=== PATIENT | male | born 1965 | race Caucasian/White ===

== ENCOUNTER 2018-11-14 15:02 | Emergency (ER) | payer SELFPAY ==
--- NOTE | 2018-11-14 15:45 | EKG ---
Test Date: 2018-11-14 Test Time: 15:08:49 Cable Repairer: VAIBHAV MEASUREMENT RESULTS: Intervals: Rate: 78 OK: 122 QRSD: 88 QT: 374 QTc: 426 Sentinel: P: 80 OK: 122 QRS: 75 T: 73 INTERPRETIVE STATEMENTS: Normal sinus rhythm Right atrial enlargement Borderline ECG No previous ECG available for comparison Electronically Signed On 11-14-18 15:44:26 MEATCUTTER by Jordan Koo
[2018-11-14 16:10] LABS: Absolute Lymphocytes (CBC) 1.7 K/uL (0.7-4.9); Absolute Monocytes 0.9 K/uL (0.1-1.3); Absolute Neutrophil 6.4 K/uL (1.8-8.0); Basophils % 1.3 % (0-1.3); Eosinophils % 4.2 % (0-4.4); Hematocrit 37.7 % (39.6-49.0); Lymphocytes % 18.4 % (15.3-44.8); RBC Red Blood Cell Count 4.76 M/uL (4.33-5.43)
[2018-11-14 16:14] LABS: Protime INR 1.09
--- NOTE | 2018-11-14 16:23 | RAD REPORT ---
EXAM DESCRIPTION: [place] Single View11/14/2018 4:16 pm CLINICAL HISTORY: Chest pain COMPARISON: none FINDINGS: Small nodular opacity overlies the left base. Right lung appears clear The heart is normal size IMPRESSION: Small nodular opacity overlying the left base probably represents a nipple shadow. As a pulmonary nodule has a similar appearance it is recommended that the patient have frontal and oblique views of the chest with a left nipple marker for further evaluation
[2018-11-14 16:28] LABS: ALT/SGPT 25 U/L (12-78); AST/SGOT 27 U/L (15-37); Albumin 3.2 g/dL (3.4-5.0); Alkaline Phosphatase 143 U/L (45-117); BUN Blood Urea Nitrogen 9 mg/dL (7-18); Bicarbonate 28 mmol/L (21-32); Bilirubin Direct 0.1 mg/dL (0-0.2); Bilirubin Total 0.3 mg/dL (0.2-1.0); Glucose Level 84 mg/dL (74-106); Magnesium 2.2 mg/dL (1.8-2.4); NT PRO-BNP 223 pg/mL (<125); Potassium 3.9 mmol/L (3.5-5.1); Protein, Total 8.3 g/dL (6.4-8.2); Sodium Level 138 mmol/L (136-145); Troponin (Emerg Dept Use Only) < 0.02 ng/mL (0.0-0.045)
[2018-11-14 16:57] LABS: Urine Blood NEGATIVE (NEG); Urine Glucose NEGATIVE (NEG); Urine Protein NEGATIVE (NEG); Urine Specific Gravity 1.015 (1.005-1.030)
--- NOTE | 2018-11-14 18:41 | RAD REPORT ---
EXAM DESCRIPTION: [place] Pa And Lat (2 Views)11/14/2018 6:33 pm CLINICAL HISTORY: Pulmonary nodule COMPARISON: November 14 FINDINGS: A left nipple marker has been placed. The marker overlies a nodular opacity within left base confirming that this represents a nipple shado w. The lungs appear clear of acute infiltrate. The heart is normal size
--- NOTE | 2018-11-14 18:47 | ER ---
Nurse's Notes [facility] Name: Fabricio Tesfaye Age: 53 yrs Sex: Male : 1965 Arrival Date: 11/14/2018 Time: 15:05 Bed 15 Private MD: Diagnosis: Near Syncope;Palpitations Presentation: 11/14 15:08 Presenting complaint: Nausea x and nonproductive cough x 4 days, dizziness since this hb morning. Transition of care: patient was not received from another setting of care. Onset of symptoms was November 10, 2018. Risk Assessment: Do you want to hurt yourself or someone else? Patient reports no desire to harm self or others. Care prior to arrival: None. 15:08 Method Of Arrival: Ambulatory hb 15:08 Acuity: ANIA 3 hb 19:10 Initial Sepsis Screen: Does the patient meet any 2 criteria? No. Patient's initial ss sepsis screen is negative. Does the patient have a suspected source of infection? No. Patient's initial sepsis screen is negative. Historical: - Allergies: 15:10 No Known Allergies; hb - Home Meds: 15:10 None [Active]; hb - PMHx: 15:10 Psoriasis; hb - PSHx: 15:10 None; hb - Immunization history:: Adult Immunizations up to date. - Social history:: Smoking status: Patient uses tobacco products, smokes one pack cigarettes per day. - Ebola Screening: : No symptoms or risks identified at this time. Screenin:25 Abuse screen: Denies threats or abuse. Denies injuries from another. Nutritional sg screening: No deficits noted. Tuberculosis screening: No symptoms or risk factors identified. Never had TB. Fall Risk None identified. Assessment: 15:22 General: Appears in no apparent distress. comfortable, well groomed, well developed, sg well nourished, Behavior is calm, cooperative, appropriate for age. Pain: Denies pain. Neuro: Level of Consciousness is awake, alert, obeys commands, Oriented to person, place, time, Diet Counselor are equal bilaterally Moves all extremities. Full function Gait is steady, Speech is normal, Reports dizziness. Cardiovascular: Capillary refill is brisk in bilateral fingers Patient's skin is warm and dry. Respiratory: Airway is patent Respiratory effort is even, unlabored, Respiratory pattern is regular, symmetrical. GI: Abdomen is round non-distended, Reports normal bowel habits, tolerance of fluids, tolerance of food. : No signs and/or symptoms were reported regarding the genitourinary system. EENT: No signs and/or symptoms were reported regarding the EENT system. Derm: Skin is pink, warm \T\ dry. Musculoskeletal: No signs and/or symptoms reported regarding the musculoskeletal system. Vital Signs: 15:09 BP 124 / 69; Pulse 69; Resp 18; Temp 97.8; Pulse Ox 100% on R/A; Pain 8/10; hb 15:40 BP 122 / 70 Supine; Pulse 70; Resp 17; sg 15:42 BP 124 / 67 Sitting; Pulse 72; Resp 17 S; sg 15:45 BP 130 / 74 Standing; Pulse 82; Resp 16; sg 16:27 BP 126 / 71; Pulse 76; Resp 18; Pulse Ox 95% on R/A; sg 17:33 BP 126 / 83; Pulse 70; Resp 16; Temp 97.8(O); Pulse Ox 99% on R/A; mh5 ED Course: 15:05 Patient arrived in ED. mr 15:09 Triage completed. hb 15:09 Arm band placed on. hb 15:12 EKG done, by semiconductor development technician. reviewed by Misael Serrano MD. at1 15:14 Arun Alba, CONNOR is Primary Nurse. sg 15:17 Waylon Ricketts PA is PHCP. jr8 15:17 Misael Serrano MD is Attending Physician. jr8 15:54 Initial lab(s) drawn, by ut, sent to lab. Inserted saline lock: 20 gauge in right mh5 forearm, using aseptic technique. Blood collected. 15:55 Patient has correct armband on for positive identification. Placed in gown. Bed in low mh5 position. Call light in reach. Side rails up X 1. Warm blanket given. quality assurance monitor chassis on. Pulse ox on. NIBP on. 16:16 XRAY Chest (1 view) In Process Unspecified. EDMS 18:34 XRAY Chest Pa And Lat (2 Views) In Process Unspecified. EDMS 18:46 Jordan Koo MD is Referral Physician. jr8 19:09 No provider procedures requiring assistance completed. IV discontinued, intact, ss bleeding controlled, No redness/swelling at site. Pressure dressing applied. Administered Medications: No medications were administered Outcome: 18:47 Discharge ordered by MD. abreu 19:09 Discharged to home ambulatory. 19:09 Condition: stable 19:09 Discharge instructions given to patient, family, Instructed on discharge instructions, follow up and referral plans. medication usage, Demonstrated understanding of instructions, follow-up care, medications. 19:10 Patient left the ED. Signatures: Dispatcher [employer] EDMS Arun Alba RN RN MaxxElena mr Ana Caballero RN RN Waylon Ricketts PA PA jrNevaeh Nino, senior sustainability advisor EKG Tat1 Isa Murillo RN RN hb Martinez, [facility]
--- NOTE | 2018-11-14 18:47 | EDPHYS ---
Physician Documentation [facility] Name: Fabricio Tesfaye Age: 53 yrs Sex: Male : 1965 Arrival Date: 11/14/2018 Time: 15:05 Bed 15 Private MD: ED Physician Misael Serrano HPI: 11/14 16:44 This 53 yrs old Male presents to ER via Ambulatory with complaints of jr8 Dizziness, Vomiting. 16:44 The patient presents with dizziness, feeling faint. Onset: The symptoms/episode jr8 began/occurred acutely, today. Context: occurred at home, occurred while the patient was standing. Modifying factors: The symptoms are alleviated by lying down, the symptoms are aggravated by standing up. Associated signs and symptoms: Pertinent positives: palpitations, nausea . Severity of symptoms: At their worst the symptoms were moderate in the emergency department the symptoms have improved. Patient's baseline: Neuro: alert and fully oriented, Motor: no deficits, Ambulation: walks without assistance, Speech: normal. The patient has not experienced similar symptoms in the past. The patient has not recently seen a physician. Historical: - Allergies: 15:10 No Known Allergies; hb - Home Meds: 15:10 None [Active]; hb - PMHx: 15:10 Psoriasis; hb - PSHx: 15:10 None; hb - Immunization history:: Adult Immunizations up to date. - Social history:: Smoking status: Patient uses tobacco products, smokes one pack cigarettes per day. - Ebola Screening: : No symptoms or risks identified at this time. ROS: 16:44 Eyes: Negative for injury, pain, redness, and discharge, ENT: Negative for injury, jr8 pain, and discharge, Neck: Negative for injury, pain, and swelling, Respiratory: Negative for shortness of breath, cough, wheezing, and pleuritic chest pain, Abdomen/GI: Negative for abdominal pain, nausea, vomiting, diarrhea, and constipation, Back: Negative for injury and pain, MS/Extremity: Negative for injury and deformity, Skin: Negative for injury, rash, and discoloration. 16:44 Cardiovascular: Positive for palpitations, Negative for chest pain, edema, orthopnea, paroxysmal nocturnal dyspnea. 16:44 Neuro: Positive for dizziness, near syncope, Negative for altered mental status, gait disturbance, headache, hearing loss, loss of consciousness, numbness, seizure activity, speech changes, syncope, tingling, tinnitus, tremor, visual changes, weakness. Exam: 16:44 Eyes: Pupils equal round and reactive to light, extra-ocular motions intact. Lids and jr8 lashes normal. Conjunctiva and sclera are non-icteric and not injected. Cornea within normal limits. Periorbital areas with no swelling, redness, or edema. ENT: Nares patent. No nasal discharge, no septal abnormalities noted. Tympanic membranes are normal and external auditory canals are clear. Oropharynx with no redness, swelling, or masses, exudates, or evidence of obstruction, uvula midline. Mucous membranes moist. Neck: Trachea midline, no thyromegaly or masses palpated, and no cervical lymphadenopathy. Supple, full range of motion without nuchal rigidity, or vertebral point tenderness. No Meningismus. Cardiovascular: Regular rate and rhythm with a normal S1 and S2. No gallops, murmurs, or rubs. Normal PMI, no JVD. No pulse deficits. Respiratory: Lungs have equal breath sounds bilaterally, clear to auscultation and percussion. No rales, rhonchi or wheezes noted. No increased work of breathing, no retractions or nasal flaring. Abdomen/GI: Soft, non-tender, with normal bowel sounds. No distension or tympany. No guarding or rebound. No evidence of tenderness throughout. Back: No spinal tenderness. No costovertebral tenderness. Full range of motion. Skin: Warm, dry with normal turgor. Normal color with no rashes, no lesions, and no evidence of cellulitis. MS/ Extremity: Pulses equal, no cyanosis. Neurovascular intact. Full, normal range of motion. 16:44 Neuro: Orientation: to person, place, time \T\ situation. Mentation: is normal, Memory: is normal, immediate memory is intact, recent memory is intact, remote memory is intact, Cranial nerves: CN I not tested, CN II- XII are normal as tested, extraocular movements are intact, Facial palsy and sensory deficits are absent. Nystagmus is absent. Speech is clear and appropriate. Tongue strength is normal, Cerebellar function: normal finger to nose testing, heel to galdamez testing is normal, Motor: moves all fours, strength is 5/5 in all extremities, Sensation: no obvious gross deficits, Gait: not tested. seizure activity, is not displayed by the patient, Abnormal movements: there are no abnormal movements. 16:49 ECG was reviewed by the Attending Physician. jr8 Vital Signs: 15:09 BP 124 / 69; Pulse 69; Resp 18; Temp 97.8; Pulse Ox 100% on R/A; Pain 8/10; hb 15:40 BP 122 / 70 Supine; Pulse 70; Resp 17; sg 15:42 BP 124 / 67 Sitting; Pulse 72; Resp 17 S; sg 15:45 BP 130 / 74 Standing; Pulse 82; Resp 16; sg 16:27 BP 126 / 71; Pulse 76; Resp 18; Pulse Ox 95% on R/A; sg 17:33 BP 126 / 83; Pulse 70; Resp 16; Temp 97.8(O); Pulse Ox 99% on R/A; mh5 MDM: 15:17 Patient medically screened. jr8 18:43 Data reviewed: vital signs, nurses notes, lab test result(s), EKG, radiologic studies, jr8 plain films. Data interpreted: Pulse oximetry: on room air is 99 %. Interpretation: normal. Counseling: I had a detailed discussion with the patient and/or guardian regarding: the historical points, exam findings, and any diagnostic results supporting the discharge/admit diagnosis, lab results, radiology results, the need for outpatient follow up, a lozenge maker helper, a family practitioner, to return to the emergency department if symptoms worsen or persist or if there are any questions or concerns that arise at home. Response to treatment: the patient's symptoms have resolved after treatment. 11/14 15:34 Order name: Basic Metabolic Panel; Complete Time: :11/14 15:34 Order name: CBC with Diff; Complete Time: :11/14 15:34 Order name: LFT's; Complete Time: :11/14 15:34 Order name: Magnesium; Complete Time: :11/14 15:34 Order name: NT PRO-BNP; Complete Time: :11/14 15:34 Order name: PT-INR; Complete Time: :11/14 15:12 Order name: EKG; Complete Time: 15:12 11/14 15:12 Order name: EKG - Nurse/Tech; Complete Time: 15:12 11/14 15:34 Order name: Troponin (emerg Dept Use Only); Complete Time: 16:47 11/14 15:34 Order name: XRAY Chest (1 view); Complete Time: 16:47 11/14 15:34 Order name: Cardiac monitoring; Complete Time: 16:20 11/14 15:34 Order name: IV Saline Lock; Complete Time: 16:20 11/14 16:23 Order name: Urine Dipstick--Ancillary (enter results); Complete Time: 17:06 em1 11/14 16:49 Order name: XRAY Chest Pa And Lat (2 Views); Complete Time: 18:43 11/14 15:34 Order name: Labs collected and sent; Complete Time: 16:20 11/14 15:34 Order name: O2 Per Protocol; Complete Time: 16:21 11/14 15:34 Order name: O2 Sat Monitoring; Complete Time: 16:21 11/14 15:34 Order name: Orthostatics; Complete Time: 16:20 11/14 16:23 Order name: Urine Dipstick-Ancillary (obtain specimen); Complete Time: 16:23 em1 EC:49 Rate is 78 beats/min. Rhythm is regular, Normal Sinus Rhythm. QRS [place] is Normal. [place] jr8 interval is normal at 122 msec. QRS interval is normal at 88 msec. QT interval is normal at 426 msec. No Q waves. T waves are Normal. No ST changes noted. Clinical impression: No evidence of ischemia and Right Atrial Enlargement . Interpreted by me. Reviewed by me. Administered Medications: No medications were administered Disposition: 11/15 06:32 Co-signature as Attending Physician, Misael Serrano MD I agree with the assessment and kdr plan of care. Disposition: 11/14/18 18:47 Discharged to Home. Impression: Near Syncope, Palpitations. - Condition is Stable. - Discharge Instructions: Palpitations. - Medication Reconciliation Form, Thank You Letter, Antibiotic Education, Prescription Opioid Use form. - Follow up: Jordan Koo MD; When: 2 - 3 days; Reason: Recheck today's complaints, Continuance of care, Re-evaluation by your physician. - Problem is new. - Symptoms have improved. Signatures: Dispatcher [employer] Misael Stahl MD MD kdr Martinez, Eric em1 Ana Caballero RN RN Waylon Ricketts PA PA jr8 Isa Murillo, RN RN Corrections: (The following items were deleted from the chart) 11/14 19:10 18:47 11/14/2018 18:47 Discharged to Home. Impression: Near Syncope; Palpitations. ss Condition is Stable. Forms are Medication Reconciliation Form, Thank You Letter, Antibiotic Education, Prescription Opioid Use. Follow up: Jordan Koo; When: 2 - 3 days; Reason: Recheck today's complaints, Continuance of care, Re-evaluation by your physician. Problem is new. Symptoms have improved. jr8
== END 2018-11-14 19:10 | disposition home or self-care (01) ==
LOC: ER 15:02
DX: R55 Syncope and collapse (principal); R00.2 Palpitations; R42 Dizziness and giddiness; F17.210 Nicotine dependence, cigarettes, uncomplicated
CPT/HCPCS: 36415; 71045; 71046; 80048; 80076; 81003; 83735; 83880; 84484; 85025; 85610; 93005; 99284

== ENCOUNTER 2020-04-07 12:26 | Emergency (ER) | payer SELFPAY ==
[2020-04-07] MEDS ORDERED: CEPHALEXIN 250 MG CAP ONE (14:49)
[2020-04-07] MEDS ORDERED: SMZ./TMP. 800/160 MG TABLET ONE (14:50)
[2020-04-07] MEDS ORDERED: LIDOCAINE 1% MPF 5 ML VIAL ONE (14:50)
--- NOTE | 2020-04-07 15:52 | EDPHYS ---
Physician Documentation [facility] Name: Fabricio Tesfaye Age: 54 yrs Sex: Male : 1965 Arrival Date: 04/07/2020 Time: 12:27 Bed 28 Private MD: ED Physician Usman Parsons HPI: 04/07 16:04 This 54 yrs old Male presents to ER via Ambulatory with complaints of Insect kb Bite. 16:05 The patient presents with an abscess of the dorsum of right hand. Description: kb draining, erythematous, swollen, warm. 16:08 Onset: The symptoms/episode began/occurred 1 week(s) ago. Possible cause(s): cut hand. kb Associated signs and symptoms: Pertinent positives: drainage, erythema, swelling. Modifying factors: the symptoms are alleviated by nothing, the symptoms are aggravated by nothing. Severity of symptoms: At their worst the symptoms were moderate, in the emergency department the symptoms are unchanged. The patient has not experienced similar symptoms in the past. The patient has not recently seen a physician. Pt reports he cut his hand a week ago, now it is draining, red, swollen and hot. Denies fever. Historical: - Allergies: 12:38 No Known Allergies; ca1 - Home Meds: 12:38 None [Active]; ca1 - PMHx: 12:38 psoriasis; ca1 - PSHx: 12:38 None; ca1 - Immunization history:: Adult Immunizations not up to date, Last tetanus immunization: < 5 years ago. - Social history:: Smoking status: Patient reports the use of cigarette tobacco products, smokes one pack cigarettes per day. ROS: 16:03 Constitutional: Negative for fever, chills, and weight loss, Cardiovascular: Negative kb for chest pain, palpitations, and edema, Respiratory: Negative for shortness of breath, cough, wheezing, and pleuritic chest pain, Abdomen/GI: Negative for abdominal pain, nausea, vomiting, diarrhea, and constipation, Back: Negative for injury and pain, MS/Extremity: Negative for injury and deformity, Neuro: Negative for headache, weakness, numbness, tingling, and seizure. 16:03 Skin: Positive for abscess, cellulitis, erythema, swelling, of the dorsum of right hand. Exam: 16:03 Constitutional: This is a well developed, well nourished patient who is awake, alert, kb and in no acute distress. Head/Face: Normocephalic, atraumatic. Chest/axilla: Normal chest wall appearance and motion. Nontender with no deformity. No lesions are appreciated. Cardiovascular: Regular rate and rhythm with a normal S1 and S2. No gallops, murmurs, or rubs. Normal PMI, no JVD. No pulse deficits. Respiratory: Lungs have equal breath sounds bilaterally, clear to auscultation and percussion. No rales, rhonchi or wheezes noted. No increased work of breathing, no retractions or nasal flaring. Abdomen/GI: Soft, non-tender, with normal bowel sounds. No distension or tympany. No guarding or rebound. No evidence of tenderness throughout. MS/ Extremity: Pulses equal, no cyanosis. Neurovascular intact. Full, normal range of motion. Neuro: Awake and alert, GCS 15, oriented to person, place, time, and situation. Cranial nerves II-XII grossly intact. Motor strength 5/5 in all extremities. Sensory grossly intact. Cerebellar exam normal. Normal gait. 16:03 Skin: abscess, that is small, of the dorsum of right hand, with drainage, that is purulent, cellulitis, that is moderate, on the dorsum of right hand. Vital Signs: 12:34 BP 114 / 80; Pulse 108; Resp 15 S; Temp 97.4(TE); Pulse Ox 97% on R/A; Weight 72.57 kg ca1 (R); Height 5 ft. 7 in. (170.18 cm); 14:18 BP 112 / 72; Pulse 81; Resp 16; Pulse Ox 98% on R/A; Pain 10/10; ls4 15:24 BP 109 / 75; Pulse 72; Resp 18; Pulse Ox 99% on R/A; ls4 12:34 Body Mass Index 25.06 (72.57 kg, 170.18 cm) ca1 Procedures: 16:09 I \T\ D: Incision and drainage was performed for an abscess of the right dorsum of right kb hand Prepped with Betadine, Anesthetized with 1 ml's 1% Lidocaine. Incised with #11 blade. Drained small amount purulent fluid. Dressing: sterile 4x4 gauze, the patient tolerated the procedure well. MDM: 14:14 Patient medically screened. 16:02 Data reviewed: vital signs, nurses notes. Data interpreted: Pulse oximetry: on room air kb is 99 %. Interpretation: normal. Counseling: I had a detailed discussion with the patient and/or guardian regarding: the historical points, exam findings, and any diagnostic results supporting the discharge/admit diagnosis, the need for outpatient follow up, a family practitioner, to return to the emergency department if symptoms worsen or persist or if there are any questions or concerns that arise at home. 16:08 ED course: Pt given strict return precautions and educated to follow up with PCP or kb hand specialist. . 04/07 14:43 Order name: Wound Culture 04/07 14:42 Order name: I\T\D Setup; Complete Time: 14:57 kb Administered Medications: 14:50 Drug: Bactrim (160 mg-800 mg (DS) 1 tablet Route: PO; ls4 15:10 Follow up: Response: No adverse reaction; Marked relief of symptoms ls4 14:50 Drug: KeFLEX 500 mg Route: PO; ls4 16:20 Follow up: Response: No adverse reaction; Marked relief of symptoms ls4 15:35 Drug: Lidocaine (1 %) 1 vials Volume: 5 ml; Route: Infiltration; ls4 16:20 Drug: [place] 10 mg-325 mg 1 tabs Route: PO; ls4 16:21 Follow up: Response: No adverse reaction ls4 Disposition: 17:52 Co-signature as Attending Physician, Usman Parsons MD. rn Disposition: 04/07/20 15:52 Discharged to Home. Impression: Cutaneous abscess of right hand, Cellulitis of right upper limb. - Condition is Stable. - Discharge Instructions: Skin Abscess, [id number], Cellulitis, Adult, [id number]. - Prescriptions for Keflex 500 mg Oral Capsule - take 1 capsule by ORAL route every 8 hours for 10 days; 30 capsule. Bactrim DS 800- 160 mg Oral Tablet - take 1 tablet by ORAL route every 12 hours for 10 days; 20 tablet. - Medication Reconciliation Form, Thank You Letter, Antibiotic Education, Prescription Opioid Use form. - Follow up: Emergency Department; When: As needed; Reason: Worsening of condition. Follow up: Private Physician; When: 2 - 3 days; Reason: Recheck today's complaints, Continuance of care, Re-evaluation by your physician. Signatures: Dispatcher [employer] EDWA Betty Yang, CORRECTIONAL SUPERVISOR LIEUTENANT-C CORRECTIONAL SUPERVISOR LIEUTENANT-Ckb Usman Parsons MD MD rn Stewart, Lisa, RN RN ls4 Olinda Burch RN RN ca1 Corrections: (The following items were deleted from the chart) 14:54 12:39 Hand Right 3 View+RAD.RAD.BRZ ordered. [facility] 16:03 16:03 Skin: Positive for abscess, cellulitis, erythema, swelling, of the right hand, kb kb 16:28 15:52 04/07/2020 15:52 Discharged to Home. Impression: Cutaneous abscess of right hand; ls4 Cellulitis of right upper limb. Condition is Stable. Forms are Medication Reconciliation Form, Thank You Letter, Antibiotic Education, Prescription Opioid Use. Follow up: Emergency Department; When: As needed; Reason: Worsening of condition. Follow up: Private Physician; When: 2 - 3 days; Reason: Recheck today's complaints, Continuance of care, Re-evaluation by your physician. kb
--- NOTE | 2020-04-07 15:52 | ER ---
Nurse's Notes [facility] Name: Fabricio Tesfaye Age: 54 yrs Sex: Male : 1965 Arrival Date: 04/07/2020 Time: 12:27 Bed 28 Private MD: Diagnosis: Cutaneous abscess of right hand;Cellulitis of right upper limb Presentation: 04/07 12:34 Chief complaint: Patient states: Infected lac on R hand, swelling, redness, drainage ca1 noted. Reports pain on R hand. Lac was , did not seek treatment til today. Coronavirus screen: Patient denies a cough. Patient denies shortness of breath or difficulty breathing. Patient denies measured and/or subjective temperature greater than 100.4F prior to today's visit. Patient denies travel on a cruise ship or to a country the [facility] currently lists as an affected area. Patient denies contact with known and/or suspected case of COVID-19. Proceed with normal triage. Ebola Screen: Patient negative for fever greater than or equal to 101.5 degrees Fahrenheit, and additional compatible Ebola Virus Disease symptoms Patient denies exposure to infectious person. Patient denies travel to an Ebola-affected area in the 21 days before illness onset. No symptoms or risks identified at this time. Initial Sepsis Screen: Does the patient meet any 2 criteria? No. Patient's initial sepsis screen is negative. Does the patient have a suspected source of infection? No. Patient's initial sepsis screen is negative. Risk Assessment: Do you want to hurt yourself or someone else? Patient reports no desire to harm self or others. Onset of symptoms was April 07, 2020. 12:34 Method Of Arrival: Ambulatory ca1 12:34 Acuity: ANIA 4 ca1 Triage Assessment: 14:15 Bite description: bite sustained to right hand by an unknown animal, Pt has injury that ls4 occurred one month ago to same hand. a pallet fell on his hand. hand is swollen and there is a head medial injury with small amount of sanguinous fluid at head. , animal information: vaccination(s) is not applicable. 14:17 General: Appears in no apparent distress. uncomfortable, Behavior is calm, cooperative. ls4 Pain: Complains of pain in right hand Pain currently is 10 out of 10 on a pain scale. Historical: - Allergies: 12:38 No Known Allergies; ca1 - Home Meds: 12:38 None [Active]; ca1 - PMHx: 12:38 psoriasis; ca1 - PSHx: 12:38 None; ca1 - Immunization history:: Adult Immunizations not up to date, Last tetanus immunization: < 5 years ago. - Social history:: Smoking status: Patient reports the use of cigarette tobacco products, smokes one pack cigarettes per day. Screenin:24 Abuse screen: Denies threats or abuse. Denies injuries from another. Nutritional ls4 screening: No deficits noted. Tuberculosis screening: No symptoms or risk factors identified. Fall Risk None identified. Assessment: 15:24 Reassessment: Patient appears in no apparent distress at this time. Patient and/or ls4 family updated on plan of care and expected duration. Pain level reassessed. Patient is alert, oriented x 3, equal unlabored respirations, skin warm/dry/pink. Vital Signs: 12:34 BP 114 / 80; Pulse 108; Resp 15 S; Temp 97.4(TE); Pulse Ox 97% on R/A; Weight 72.57 kg ca1 (R); Height 5 ft. 7 in. (170.18 cm); 14:18 BP 112 / 72; Pulse 81; Resp 16; Pulse Ox 98% on R/A; Pain 10/10; ls4 15:24 BP 109 / 75; Pulse 72; Resp 18; Pulse Ox 99% on R/A; ls4 12:34 Body Mass Index 25.06 (72.57 kg, 170.18 cm) ca1 ED Course: 12:27 Patient arrived in ED. ag5 12:37 Triage completed. ca1 12:38 Arm band placed on right wrist. ca1 14:00 Patient has correct armband on for positive identification. Bed in low position. Call ls4 light in reach. Side rails up X 1. 14:00 Pulse ox on. NIBP on. ls4 14:00 Patient did not have IV access during this emergency room visit. ls4 14:09 Leta Dobbins, CONNOR is Primary Nurse. ls4 14:13 Betty aYng FNP-C is PHCP. kb 14:13 Usman Parsons MD is Attending Physician. kb 15:55 Assist provider with I \T\ D: Set up I\T\D tray. Performed by Betty MERCEDES Culture ls 4 sent to lab. Dressing with 4X4s, Patient tolerated well. Administered Medications: 14:50 Drug: Bactrim (160 mg-800 mg (DS) 1 tablet Route: PO; ls4 15:10 Follow up: Response: No adverse reaction; Marked relief of symptoms ls4 14:50 Drug: KeFLEX 500 mg Route: PO; ls4 16:20 Follow up: Response: No adverse reaction; Marked relief of symptoms ls4 15:35 Drug: Lidocaine (1 %) 1 vials Volume: 5 ml; Route: Infiltration; ls4 16:20 Drug: Rippey 10 mg-325 mg 1 tabs Route: PO; ls4 16:21 Follow up: Response: No adverse reaction ls4 Outcome: 15:52 Discharge ordered by . marquez 16:21 Discharged to home ambulatory. ls4 16:21 Condition: good 16:21 Discharge instructions given to patient, Instructed on discharge instructions, follow up and referral plans. medication usage, Demonstrated understanding of instructions, follow-up care, medications, Prescriptions given X 2. 16:28 Patient left the ED. ls4 Addendum: 04/11/2020 07:53 Addendum: Culture Results: Positive wound culture. No further action required. Bacteria e b sensitive to prescribed antibiotic. Signatures: Betty Yang, DAREN GOAL UMPIRE-Ckb Jordyn Quiros Lisa, RN RN ls4 Olinda Burch RN RN ca1 Ramesh Marinelli ag5 Corrections: (The following items were deleted from the chart) 04/07 15:55 14:00 No provider procedures requiring assistance completed. ls4 ls4
[2020-04-07] MEDS ORDERED: HYDROCODONE/APAP 10/325 TAB ONE (16:18)
[2020-04-08 06:01] VITALS: TEMP 97.4
[2020-04-08 06:04] VITALS: BP 109/75; O2SAT 99
== END 2020-04-07 16:28 | disposition home or self-care (01) ==
LOC: ER 12:26
PROC: 0J9J0ZZ Drainage of Right Hand Subcutaneous Tissue and Fascia, Open Approach (ICD-10-PCS; principal; 2020-04-07)
DX: L03.113 Cellulitis of right upper limb (principal); L02.511 Cutaneous abscess of right hand; F17.210 Nicotine dependence, cigarettes, uncomplicated
CPT/HCPCS: 87070; 87077; 87186; 87205; 99284

== ENCOUNTER 2023-02-23 17:12 | Emergency (ER) | payer SELFPAY ==
[2023-02-23] MEDS ORDERED: NA CHLORIDE 0.9% 1,000 ML ONE (17:47)
[2023-02-23] MEDS ORDERED: FENTANYL CITR 100 MCG/2 ML ONE (17:47)
[2023-02-23 18:02] LABS: Absolute Lymphocytes (CBC) 1.4 K/uL (0.7-4.9); Hematocrit 39.5 % (39.6-49.0); Lymphocytes % 18.7 % (15.3-44.8); MCV 84.7 fL (80-100); MPV 7.8 fL (7.6-11.3); RBC Red Blood Cell Count 4.67 M/uL (4.33-5.43)
[2023-02-23 18:16] LABS: Potassium 3.5 mEq/L (3.5-5.1)
[2023-02-23] MEDS ORDERED: VANCOMYCIN 1 GM/VIAL ONE (18:47)
[2023-02-23] MEDS ORDERED: NA CHLORIDE 0.9% 250 ML ONE (18:47)
--- NOTE | 2023-02-23 19:00 | ER ---
Nurse's Notes [facility] Name: Fabricio Tesfaye Age: 57 yrs Sex: Male : 1965 Arrival Date: 02/23/2023 Time: 17:12 Bed 4 Private MD: Diagnosis: Cellulitis of left upper limb;Puncture wound without foreign body of left index finger without damage to nail, initial encounter Presentation: 02/23 17:26 Chief complaint: Patient states: L hand 4 th digit pain , swelling, infection for 2-3 ll1 days. Coronavirus screen: Vaccine status: Patient reports being unvaccinated. Client denies travel out of the [place] in the last 14 days. At this time, the client does not indicate any symptoms associated with coronavirus-19. Ebola Screen: Patient denies travel to an Ebola-affected area in the 21 days before illness onset. Initial Sepsis Screen: Does the patient meet any 2 criteria? No. Patient's initial sepsis screen is negative. Does the patient have a suspected source of infection? Yes: Skin breakdown/wound. Risk Assessment: Do you want to hurt yourself or someone else? Patient reports no desire to harm self or others. Onset of symptoms was February 21, 2023. 17:26 Method Of Arrival: Ambulatory ll1 17:26 Acuity: ANIA 3 ll1 Triage Assessment: 17:28 General: Appears in no apparent distress. Behavior is calm, cooperative, appropriate ll1 for age. Pain: Complains of pain in left hand Pain currently is 9 out of 10 on a pain scale. Quality of pain is described as aching. Derm: Reports pain. Musculoskeletal: Circulation, motion, and sensation intact. Capillary refill < 3 seconds. Injury Description: possible FB. Historical: - Allergies: 17:25 No Known Allergies; ll1 - PMHx: 17:25 psoriasis; ll1 - PSHx: 17:25 None; ll1 - Immunization history:: Client reports having NOT received the Covid vaccine. Last tetanus immunization: up to date. - Social history:: Smoking status: Patient reports the use of cigarette tobacco products, smokes one pack cigarettes per day. Screenin:56 [facility] ED Fall Risk Assessment (Adult) History of falling in the last 3 months, kc6 including since admission No falls in past 3 months (0 pts) Confusion or Disorientation No (0 pts) Intoxicated or Sedated No (0 pts) Impaired Gait No (0 pts) Mobility Assist Device Used No (0 pt) Altered Elimination No (0 pt) Score/Fall Risk Level 0 - 2 = Low Risk Oriented to surroundings, Maintained a safe environment, Educated pt \T\ family on fall prevention, incl call for assistance when getting out of bed, Assessed \T\ reinforced patient's understanding of fall precautions, Hourly rounding (assess needs \T\ fall precautionary measures) done. Abuse screen: Denies threats or abuse. Denies injuries from another. Nutritional screening: No deficits noted. Tuberculosis screening: No symptoms or risk factors identified. Assessment: 17:54 General: Appears in no apparent distress. comfortable, Behavior is calm, cooperative, kc6 appropriate for age. Pain: Complains of pain in left hand. Neuro: Kim Agitation-Sedation Scale (RASS): 0 - Alert and Calm Level of Consciousness is awake, alert, obeys commands, Oriented to person, place, time, situation, Appropriate for age. Cardiovascular: Capillary refill < 3 seconds. Respiratory: Airway is patent Trachea midline Respiratory effort is even, unlabored, Respiratory pattern is regular, symmetrical. GI: No signs and/or symptoms were reported involving the gastrointestinal system. : No signs and/or symptoms were reported regarding the genitourinary system. EENT: No signs and/or symptoms were reported regarding the EENT system. Derm: Skin is pink, warm \T\ dry. Wound noted left index finger Wound is open, purulent with redness, swelling, and bruising. Musculoskeletal: No signs and/or symptoms reported regarding the musculoskeletal system. Circulation, motion, and sensation intact. Capillary refill < 3 seconds, Range of motion: intact in all extremities. Vital Signs: 17:26 BP 128 / 73; Pulse 108; Resp 17; Temp 97.7; Pulse Ox 97% ; Weight 68.04 kg; Height 5 ll1 ft. 6 in. ; Pain 9/10; 17:58 BP 111 / 69; Pulse 99; Resp 16; Pulse Ox 100% on R/A; ko1 19:13 BP 123 / 75; Pulse 93; Resp 16; Pulse Ox 98% on R/A; Pain 3/10; sg5 20:51 BP 140 / 78; Pulse 82; Resp 17; Pulse Ox 99% on R/A; kd3 17:26 Body Mass Index 24.21 (68.04 kg, 167.64 cm) ll1 17:26 Pain Scale: Adult ll1 19:13 Pain Scale: Adult sg5 ED Course: 17:17 Patient arrived in ED. kj1 17:23 Angel Roman PA is PHCP. cp 17:24 Andres Del Cid DO is Attending Physician. cp 17:25 Arm band placed on. ll1 17:28 Triage completed. ll1 17:44 Radha Houser, CONNOR is Primary Nurse. ko1 17:49 Wound Culture Sent. kc6 17:55 Inserted saline lock: 22 gauge in right antecubital area, using aseptic technique. ko1 Blood collected. 17:56 Patient has correct armband on for positive identification. Bed in low position. Call kc6 light in reach. Side rails up X2. Adult w/ patient. 17:57 Lactate w/ 2H reflex if indic. Sent. ko1 17:57 CRP Sent. ko1 17:57 BMP Sent. ko1 17:57 CBC with Diff Sent. ko1 17:58 Pulse ox on. NIBP on. ko1 19:05 XRAY Finger-Thumb Left In Process Unspecified. EDMS 19:14 Initiated transfer with Mony Sifuentes at [facility]. rv1 20:09 Pt accepted to [facility] by Dr. Ley to [address]. rv1 20:51 No provider procedures requiring assistance completed. Patient transferred, IV remains kd3 in place. Administered Medications: 17:57 Drug: NS 0.9% IV 1000 ml Route: IV; Rate: 1 bolus; Site: right antecubital; ko1 20:51 Follow up: IV Status: Infusion continued kd3 17:57 Drug: fentaNYL (PF) IVP 25 mcg Route: IVP; Site: right antecubital; ko1 20:52 Follow up: Response: No adverse reaction; Pain is decreased kd3 18:47 Drug: vancoMYCIN IVPB 1 grams Route: IVPB; Infused Over: 2 hrs; Site: right antecubital;ko1 20:51 Follow up: IV Status: Completed infusion kd3 20:51 Drug: Piperacillin-Tazobactam IVPB 3.375 grams Route: IVPB; Infused Over: 60 mins; kd3 Site: right antecubital; 20:52 Follow up: IV Status: Infusion continued kd3 Medication: 20:52 VIS not applicable for this client. kd3 Outcome: 18:59 ER care complete, transfer ordered by MD. triana 20:52 Transferred by ground EMS kd3 20:52 Condition: stable 20:52 Discharge instructions given to patient, family, Instructed on follow up and referral plans. the need for transfer, Demonstrated understanding of instructions, follow-up care. 20:54 Patient left the ED. kd3 Addendum: 02/26/2023 07:43 Addendum: Culture Results: Positive wound culture. patient has been discharged from [facility] per provider pt given and prescribed antibiotics sensitive to culture report. Signatures: Dispatcher [employer] EDMS Imtiaz Millard em1 Angel Roman PA PA cp Botello, Elizabeth eb Jackson, Kandis kj1 Stephany Krishnamurthy, CONNOR RN ll1 Almita Gill RN RN kd3 Daina Giang RN RN kc6 Radha Houser RN RN ko1 Michelle Childs rv1 Tesha Umanzor RN RN sg5 Corrections: (The following items were deleted from the chart) 06 20:59 20:09 Pt accepted to [facility] by Dr. Ley to [address] [facility] 2219 em1 em1 21:02 19:14 Initiated Transfer with Mony Sifuentes at [facility] em1 rv1 21:02 20:59 Pt accepted to [facility] by Dr. Ley to [address] [place] [address] em1 rv1
--- NOTE | 2023-02-23 19:00 | EDPHYS ---
Physician Documentation [facility] Name: Fabricio Tesfaye Age: 57 yrs Sex: Male : 1965 Arrival Date: 02/23/2023 Time: 17:12 Bed 4 Private MD: ED Physician Andres Del Cid HPI: 02/23 17:35 This 57 yrs old Male presents to ER via Ambulatory with complaints of Wound Infection - cp FINGER. 17:35 The patient or guardian reports pain, a puncture wound, back fin of fish, swelling, cp tenderness. 17:35 The complaints affect the left index finger. cp 17:35 Onset: The symptoms/episode began/occurred 2 day(s) ago. cp 17:35 Associated signs and symptoms: Pertinent negatives: cyanosis distally, decreased cp sensation distally, fever. Historical: - Allergies: 17:25 No Known Allergies; ll1 - PMHx: 17:25 psoriasis; ll1 - PSHx: 17:25 None; ll1 - Immunization history:: Client reports having NOT received the Covid vaccine. Last tetanus immunization: up to date. - Social history:: Smoking status: Patient reports the use of cigarette tobacco products, smokes one pack cigarettes per day. ROS: 17:40 Constitutional: Negative for body aches, chills, fever, poor PO intake. cp 17:40 Cardiovascular: Negative for chest pain, palpitations. cp 17:40 Abdomen/GI: Negative for abdominal pain, nausea, vomiting, and diarrhea. cp 17:40 MS/extremity: Positive for erythema, pain, puncture, swelling, tenderness, warmth, of the left index finger and left hand. 17:40 All other systems are negative. Exam: 17:45 Constitutional: The patient appears in no acute distress, alert, awake, cp non-diaphoretic, non-toxic, well developed, well nourished. 17:45 Head/Face: Normocephalic, atraumatic. cp 17:45 Chest/axilla: Inspection: normal. 17:45 Cardiovascular: Rate: tachycardic, Rhythm: regular, Edema: is not appreciated, JVD: is not appreciated. 17:45 Respiratory: the patient does not display signs of respiratory distress, Respirations: normal, no use of accessory muscles, no retractions, labored breathing, is not present, Breath sounds: are clear throughout, no decreased breath sounds, no stridor, no wheezing. 17:45 Abdomen/GI: Inspection: Palpation: abdomen is soft and non-tender, in all quadrants. 17:45 Back: pain, is absent, ROM is normal. 17:45 Musculoskeletal/extremity: Extremities: grossly normal except: noted in the left hand: puncture wound noted dorsal side distal phalanx left index finger with erythema and swelling that advances proximally to dorsum of left hand, noted circumferential swelling and ecchymosis of left index finger and dorsal side abscess. Vital Signs: 17:26 BP 128 / 73; Pulse 108; Resp 17; Temp 97.7; Pulse Ox 97% ; Weight 68.04 kg; Height 5 ll1 ft. 6 in. ; Pain 9/10; 17:58 BP 111 / 69; Pulse 99; Resp 16; Pulse Ox 100% on R/A; ko1 19:13 BP 123 / 75; Pulse 93; Resp 16; Pulse Ox 98% on R/A; Pain 3/10; sg5 20:51 BP 140 / 78; Pulse 82; Resp 17; Pulse Ox 99% on R/A; kd3 17:26 Body Mass Index 24.21 (68.04 kg, 167.64 cm) ll1 17:26 Pain Scale: Adult ll1 19:13 Pain Scale: Adult sg5 MDM: 17:29 Patient medically screened. cp 19:00 Data reviewed: vital signs, nurses notes, lab test result(s), radiologic studies, plain cp films. 19:00 Differential diagnosis: tenosynovitis, abscess, cellulitis. Independent interpretation cp of the following test(s) in the Emergency Department X-Ray: My interpretation is left hand negative for foreign body. Counseling: I had a detailed discussion with the patient and/or guardian regarding: the historical points, exam findings, and any diagnostic results supporting the discharge/admit diagnosis, lab results, radiology results, the need to transfer to another facility, [facility] does not immediately have the required specialist. 20:00 ED course: consult with DR Ley, hospitalist \T\[facility], will accept patient cp after discussion and consult hand surgery. 02/23 17:33 Order name: CBC with Diff; Complete Time: 18:21 cp 02/23 18:21 Interpretation: Normal except: HGB 13.0; HCT 39.5. cp 02/23 17:33 Order name: BMP; Complete Time: 18:21 cp 02/23 19:39 Interpretation: Normal except: NA 134; GLUC 113. cp 02/23 17:33 Order name: Lactate w/ 2H reflex if indic.; Complete Time: 18:21 cp 02/23 17:33 Order name: CRP; Complete Time: 18:21 cp 02/23 17:39 Order name: Wound Culture cp 02/23 17:33 Order name: XRAY Finger-Thumb Left; Complete Time: 19:22 cp 02/23 19:22 Interpretation: Report reviewed. cp 02/23 17:33 Order name: IV; Complete Time: 18:29 cp 02/23 18:45 Order name: NPO; Complete Time: 18:45 cp Administered Medications: 17:57 Drug: NS 0.9% IV 1000 ml Route: IV; Rate: 1 bolus; Site: right antecubital; ko1 20:51 Follow up: IV Status: Infusion continued kd3 17:57 Drug: fentaNYL (PF) IVP 25 mcg Route: IVP; Site: right antecubital; ko1 20:52 Follow up: Response: No adverse reaction; Pain is decreased kd3 18:47 Drug: vancoMYCIN IVPB 1 grams Route: IVPB; Infused Over: 2 hrs; Site: right antecubital;ko1 20:51 Follow up: IV Status: Completed infusion kd3 20:51 Drug: Piperacillin-Tazobactam IVPB 3.375 grams Route: IVPB; Infused Over: 60 mins; kd3 Site: right antecubital; 20:52 Follow up: IV Status: Infusion continued kd3 Disposition: 19:46 Co-signature as Attending Physician, Andres DAMON was immediately available on-site ms3 in the Emergency Department for consultation in the care of the patient. Disposition Summary: 02/23/23 18:59 Transfer Ordered Transfer Location: [facility] cp Reason: Higher level of care cp Condition: Stable cp Problem: new cp Symptoms: have improved cp Accepting Physician: DR Ley(02/23/23 20:54) kd3 Diagnosis - Cellulitis of left upper limb cp - Puncture wound without foreign body of left index finger without damage to nail, cp initial encounter Forms: - Medication Reconciliation Form cp - SBAR form cp Signatures: Dispatcher [employer] EDAngel Yang PA PA cp Lewis, Lynsay RN RN ll1 Andres Del Cid DO DO ms3 Almita Gill RN RN kd3 Radha Houser RN RN ko1 Corrections: (The following items were deleted from the chart) 20:08 18:59 Doctor cp cp 20:08 18:59 Other synovitis and tenosynovitis, left hand cp cp 20:54 20:08 DR Ley cp kd3
--- NOTE | 2023-02-23 19:16 | RAD REPORT ---
EXAM DESCRIPTION: RAD - Finger-Thumb Left - 02/23/2023 7:04 pm CLINICAL HISTORY: puncture wound COMPARISON: No comparisons FINDINGS: Moderate soft tissue swelling is seen affecting the second digit. No underlying osteomyeli tis. No soft tissue gas. No fracture or radiopaque foreign body seen.
[2023-02-23] MEDS ORDERED: NA CHLORIDE 0.9% 100 ML ONE (20:52)
[2023-02-23] MEDS ORDERED: PIPERACIL/TAZO 3.375 GM VIAL IV ONE (20:53)
[2023-02-23 20:58] VITALS: TEMP 97.7
[2023-02-23 21:04] VITALS: BP 140/78; O2SAT 99
== END 2023-02-23 20:54 | disposition short-term general hospital (02) ==
LOC: ER 17:12
DX: L03.012 Cellulitis of left finger (principal)
CPT/HCPCS: 36415; 80048; 83605; 85025; 86140; 87070; 87077; 87186; 87205; 96361; 96365; 96366; 96375; 99285; J2543; J3010; J7030; J7050